=== PATIENT | male | born 1985 | race Caucasian/White ===

== ENCOUNTER 2021-01-17 20:03 | Inpatient (IN) | payer BC ==
[~2021-01-17] VITALS: Ht 187.9 cm; Wt 104.9 kg
[2021-01-17] MEDS ORDERED: ASPIRIN 81 MG CHEW (CHILDREN'S ASA) PO ONE (20:30)
[2021-01-17] MEDS ORDERED: ENOXAPARIN 100 MG/1 ML (LOVENOX) SYR SC ONE (20:30)
[2021-01-17] MEDS ORDERED: dilTIAZem DRIP PRE-MIX 125 ML IV SCH ×2 (20:30→23:00)
[2021-01-17 20:45] LABS: BASOPHILS % (AUTO) 0 % (0-10); EOSINOPHILS # (AUTO) 0.1 10^3/uL (0.0-0.3); EOSINOPHILS % (AUTO) 1 % (0-10); HEMATOCRIT 44 % (40-54); HEMOGLOBIN 14.7 g/dL (13.3-17.7); LYMPHOCYTES # (AUTO) 2.1 10^3/uL (1.0-4.0); LYMPHOCYTES % (AUTO) 22 % (12-44); MEAN CORPUSCULAR HEMOGLOBIN 29 pg (25-34); MEAN CORPUSCULAR HGB CONC 33 g/dL (32-36); MEAN CORPUSCULAR VOLUME 88 fL (80-99); MEAN PLATELET VOLUME 8.8 fL (9.0-12.2); MONOCYTES # (AUTO) 0.6 10^3/uL (0.0-1.0); MONOCYTES % (AUTO) 7 % (0-12); NEUTROPHILS # (AUTO) 6.6 10^3/uL (1.8-7.8); NEUTROPHILS % (AUTO) 70 % (42-75); PLATELET COUNT 346 10^3/uL (130-400); WHITE BLOOD COUNT 9.4 10^3/uL (4.3-11.0)
--- NOTE | 2021-01-17 20:54 | ED Cardiac General ---
History of Present Illness General Chief Complaint: Cardiac/General Problems Stated Complaint: IRREGULAR HEART RATE Source: patient History of Present Illness Date Seen by Provider: Jan 17, 2021 Time Seen by Provider: 20:15 Initial Comments PT ARRIVES VIA POV FROM WORK AT THE [employer] STATES HE WAS GOING TO THE BATHROOM, SITTING ON TOILET ( WORKS A STERILIZER MACHINE OPERATOR) AND NOTICED THAT HIS HEART WAS BEATING IRREGULAR STATES PULSE WAS AROUND 100 STATES HE DOES NOT FEEL IT OCCURRING RIGHT NOW NO SHORTNESS OF BREATH NO CHEST PAIN STATES HIS PALMS GOT SWEATY, BUT NO OTHER SWEATING NO DIZZINESS OR SYNCOPE NO NAUSEA/VOMITING STATES HE HAS SIMILAR SITUATION IN [place] AND WAS ADMITTED AT [facility] IN [place], AND HAD ATRIAL FIBRILLATION/FLUTTER STATES HE WAS NOT SENT HOME ON ANY MEDICATIONS--STATES THEY THOUGHT IT MIGHT BE DUE TO DEHYDRATION STATES HE FOLLOWED UP WITH DR. HERNANDEZ, PRINCIPAL LAW CLERK ON 11/20/20 AND NO RX'S GIVEN. HAS ANOTHER FOLLOW UP THE END OF JANUARY NO PRIOR PROBLEMS WITH HIS HEART ONLY MEDICATIONS ARE HYDROXYZINE AND SERTRALINE FOR ANXIETY STATES NO UNUSUAL STRESS OR ACTIVITY TODAY STATES HE WORKS OUT EVERY MORNING HAS BEEN EATING AND DRINKING NORMALLY STATES HE DID SMOKE 1 PPD, BUT QUIT 1 1/2 YEARS AGO, HAS BEEN USING NICOTINE POUCHES FOR THE LAST 2 WEEKS DRINKS A 6 PACK A COUPLE OF TIMES A WEEK, BUT DENIES ANY USE FOR A WEEK USED TO SMOKE MARIJUANA DAILY, NOW ONLY SMOKES IT EVERY COUPLE OF WEEKS, AND NONE THIS WEEK. HAS NOT RECEIVED COVID-19 VACCINE PCP: HAS SEEN A ELECTRIC WELL LOGGING OPERATOR AT [facility] IN [place] A COUPLE OF TIMES PRINCIPAL LAW CLERK: DR. HERNANDEZ AT [facility] Allergies and Home Medications Allergies Coded Allergies: No Known Drug Allergies (Unverified , 01/17/21) Patient Home Medication List Home Medication List Reviewed: Yes Review of Systems Review of Systems Constitutional: no symptoms reported EENTM: No Symptoms Reported Respiratory: No Symptoms Reported Cardiovascular: See HPI; Denies Chest Pain, Denies Lightheadedness; Palpitations; Denies Syncope Gastrointestinal: No Symptoms Reported Genitourinary: No Symptoms Reported Musculoskeletal: no symptoms reported Skin: no symptoms reported Psychiatric/Neurological: No Symptoms Reported Endocrine: No Symptoms Reported Hematologic/Lymphatic: No Symptoms Reported Past Xyeukty-Wkxaso-Irrwao Hx Patient Social History Tobacco Use?: Yes Tobacco type used: Cigarettes Smokeless Tobacco Frequency: Current Everyday User Substance use?: Yes Substance type: Marijuana Alcohol Use?: Yes Alcohol type: Beer Alcohol Frequency: Couple times a week Past Medical History Surgery/Hospitalization HX: RIGHT ORBITAL FRACTURE/RECONSTRUCTION-REPAIR Surgeries: Yes Respiratory: No Cardiac: Yes (AFIB/FLUTTER 09/2020-[place] AT [facility], CONVERTED, NO DAILY MEDS) Atrial Fibrillation Neurological: No Genitourinary: No Gastrointestinal: No Musculoskeletal: No Endocrine: No HEENT: Yes (RIGHT ORBITAL FX/REPAIR) Cancer: No Psychosocial: Yes Anxiety, Depression Integumentary: No Blood Disorders: No Physical Exam Vital Signs Vital Signs - First Documented 01/17/21 20:13 Temp 37.0 Pulse 106 Resp 18 B/P (MAP) 135/108 (117) O2 Delivery Room Air Capillary Refill : Height, Weight, BMI Height: '" Weight: lbs. oz. kg; BMI Method: General Appearance: No Apparent Distress, WD/WN Neck: Full Range of Motion, Normal Inspection, Non Tender, Supple Respiratory: Normal Breath Sounds, No Accessory Muscle Use Cardiovascular: No Edema, No JVD, No Murmur, Normal Peripheral Pulses, Irregularly Irregular, Tachycardia Gastrointestinal: Non Tender, Soft Extremity: Normal Inspection, No Calf Tenderness, No Pedal Edema Neurologic/Psychiatric: Alert, Oriented x3, No Motor/Sensory Deficits, Normal Mood/Affect, clearing distribution clerk II-XII Norm as Tested Skin: Normal Color, Warm/Dry; No Diaphoresis; Tattoos/Piercings (MULTIPLE TATTOOS) Progress/Results/Core Measures Results/Orders Lab Results Laboratory Tests Test 01/17/21 20:20 01/17/21 21:19 Range/Units White Blood Count 9.4 4.3-11.0 10^3/uL Red Blood Count 5.00 4.30-5.52 10^6/uL Hemoglobin 14.7 13.3-17.7 g/dL Hematocrit 44 40-54 % Mean Corpuscular Volume 88 80-99 fL Mean Corpuscular Hemoglobin 29 25-34 pg Mean Corpuscular Hemoglobin Concent 33 32-36 g/dL Red Cell Distribution Width 12.3 10.0-14.5 % Platelet Count 346 130-400 10^3/uL Mean Platelet Volume 8.8 L 9.0-12.2 fL Immature Granulocyte % (Auto) 0 % Neutrophils (%) (Auto) 70 42-75 % Lymphocytes (%) (Auto) 22 12-44 % Monocytes (%) (Auto) 7 0-12 % Eosinophils (%) (Auto) 1 0-10 % Basophils (%) (Auto) 0 0-10 % Neutrophils # (Auto) 6.6 1.8-7.8 10^3/uL Lymphocytes # (Auto) 2.1 1.0-4.0 10^3/uL Monocytes # (Auto) 0.6 0.0-1.0 10^3/uL Eosinophils # (Auto) 0.1 0.0-0.3 10^3/uL Basophils # (Auto) 0.0 0.0-0.1 10^3/uL Immature Granulocyte # (Auto) 0.0 0.0-0.1 10^3/uL Prothrombin Time 13.6 12.2-14.7 SEC INR Comment 1.0 0.8-1.4 Activated Partial Thromboplast Time 32 24-35 SEC Sodium Level 137 135-145 MMOL/L Potassium Level 3.9 3.6-5.0 MMOL/L Chloride Level 103 98-107 MMOL/L Carbon Dioxide Level 21 21-32 MMOL/L Anion Gap 13 5-14 MMOL/L Blood Urea Nitrogen 13 7-18 MG/DL Creatinine 1.05 0.60-1.30 MG/DL Estimat Glomerular Filtration Rate 80 BUN/Creatinine Ratio 12 Glucose Level 163 H 70-105 MG/DL Calcium Level 10.2 H 8.5-10.1 MG/DL Corrected Calcium 8.5-10.1 MG/DL Magnesium Level 2.1 1.6-2.4 MG/DL Total Bilirubin 0.4 0.1-1.0 MG/DL Aspartate Amino Transf (AST/SGOT) 226 H 5-34 U/L Alanine Aminotransferase (ALT/SGPT) 107 H 0-55 U/L Alkaline Phosphatase 64 40-136 U/L Total Creatine Kinase 26045 H 30-200 U/L Creatine Kinase MB 2.8 <6.6 NG/ML Myoglobin 709.7 H 10.0-92.0 NG/ML Troponin I < 0.028 <0.028 NG/ML B-Type Natriuretic Peptide < 10.0 <100.0 PG/ML Total Protein 7.9 6.4-8.2 GM/DL Albumin 4.8 H 3.2-4.5 GM/DL TSH [facility] Testing 1.13 0.35-4.94 UIU/ML Serum Alcohol < 10 <10 MG/DL Urine Color YELLOW Urine Clarity CLEAR Urine pH 6.0 5-9 Urine Specific [place] 1.015 L 1.016-1.022 Urine Protein NEGATIVE NEGATIVE Urine Glucose (UA) NEGATIVE NEGATIVE Urine Ketones NEGATIVE NEGATIVE Urine Nitrite NEGATIVE NEGATIVE Urine Bilirubin NEGATIVE NEGATIVE Urine Urobilinogen 0.2 < = 1.0 MG/DL Urine Leukocyte Esterase NEGATIVE NEGATIVE Urine RBC (Auto) TRACE-I NEGATIVE Urine RBC NONE /HPF Urine WBC NONE /HPF Urine Squamous Epithelial Cells RARE /HPF Urine Crystals NONE /LPF Urine Bacteria NEGATIVE /HPF Urine Casts NONE /LPF Urine Mucus NEGATIVE /LPF Urine Culture Indicated NO Urine Opiates Screen NEGATIVE NEGATIVE Urine Oxycodone Screen NEGATIVE NEGATIVE Urine Methadone Screen NEGATIVE NEGATIVE Urine Propoxyphene Screen NEGATIVE NEGATIVE Urine Barbiturates Screen NEGATIVE NEGATIVE Ur Tricyclic Antidepressants Screen NEGATIVE NEGATIVE Urine Phencyclidine Screen NEGATIVE NEGATIVE Urine Amphetamines Screen NEGATIVE NEGATIVE Urine Methamphetamines Screen NEGATIVE NEGATIVE Urine Benzodiazepines Screen NEGATIVE NEGATIVE Urine Cocaine Screen NEGATIVE NEGATIVE Urine Cannabinoids Screen NEGATIVE NEGATIVE My Orders Orders - MARTINA COMBS DO Ed Iv/Invasive Line Start (01/17/21 20:21) Ekg Tracing (01/17/21 20:21) Monitor-Rhythm Ecg Trace Only (01/17/21 20:21) Chest 1 View, Ap/Pa Only (01/17/21 20:21) Alcohol (01/17/21 20:21) BNP (01/17/21 20:21) Cbc With Automated Diff (01/17/21 20:21) Comprehensive Metabolic Panel (01/17/21 20:21) Creatine Kinase (01/17/21 20:21) Creatine Kinase Mb (01/17/21 20:21) Drug Screen Stat (Urine) (01/17/21 20:21) Magnesium (01/17/21 20:21) Protime With Inr (01/17/21 20:21) Partial Thromboplastin Time (01/17/21 20:21) Thyroid Analyzer (01/17/21 20:21) Ua Culture If Indicated (01/17/21 20:21) Myoglobin Serum (01/17/21 20:21) Troponin I (01/17/21 20:21) Aspirin Chewable Tablet (Baby Aspirin Ch (01/17/21 20:30) Enoxaparin Injection (Lovenox Injection) (01/17/21 20:30) Diltiazem Injection (Cardizem Injection) (01/17/21 20:30) Diltiazem Drip Pre-Mix (Cardizem Drip Pr (01/17/21 20:30) Ekg Tracing (01/17/21 20:44) Hepatitis Panel Acute (01/17/21 21:18) Medications Given in ED Current Medications Medications Dose Ordered Sig/Yessy Route Start Time Stop Time Status Last Admin Dose Admin Aspirin 324 mg ONCE ONCE PO 01/17/21 20:30 01/17/21 20:31 DC 01/17/21 20:27 324 MG Diltiazem HCl 20 mg ONCE ONCE IVP 01/17/21 20:30 01/17/21 20:31 DC 01/17/21 20:30 20 MG Enoxaparin Sodium 100 mg ONCE ONCE SC 01/17/21 20:30 01/17/21 20:31 DC 01/17/21 20:34 100 MG Vital Signs/I&O 01/17/21 01/17/21 20:13 20:13 Temp 37.0 Pulse 106 Resp 18 B/P (MAP) 135/108 (117) O2 Delivery Room Air Room Air Progress Progress Note : Progress Note GIVEN ASPIRIN AND LOVENOX GIVEN CARDIZEM AND BOLUS--RATE DOWN TO 80'S, BUT STILL IN ATRIAL FLUTTER PT WITH STABLE VITALS, NO HYPOTENSION NO DYSPNEA OR HYPOXIA PT WISHES TO BE A FULL CODE Initial ECG Impression Date: Jan 17, 2021 Initial ECG Impression Time: 20:14 Initial ECG Rate: 126 Initial ECG Rhythm: A Fib/Flutter (FLUTTER) EKG : EKG Time: 20:18 Rate: 87 Rhythm: A Fib/Flutter (FLUTTER) Diagnostic Imaging Comments CXR--PER RADIOLOGIST REPORT AT 2154 FINDINGS: The lungs are clear. No failure, effusion or pneumothorax. IMPRESSION: No acute appearing abnormality. Reviewed: Reviewed by Me Departure Communication (Admissions) 2119--SPOKE WITH DR. GOODWIN, PRINCIPAL LAW CLERK, ADVISES TO START ON ELIQUIS, ECHOCARDIOGRAM IN AM AND ADMIT TO MEDICINE 2125--SPOKE WITH DR. CRAWFORD, HOSPITALIST, ACCEPTS PT FOR ADMIT. NO ADDITIONAL RECOMMENDATIONS 2130--REPORT TO E-ICU PHYSICIAN. NO ADDITIONAL RECOMMENDATIONS Impression Primary Impression: ATRIAL FLUTTER WITH RVR Additional Impression: Elevated liver enzymes Disposition: ADMITTED INPATIENT Condition: Stable Admissions Decision to Admit Reason: Admit from ER (General) Decision to Admit/Date: Jan 17, 2021 Time/Decision to Admit Time: 21:20 Departure-Patient Inst. Referrals: NO,LOCAL PHYSICIAN (PCP/Family) Primary Care Physician MARTINA COMBS DO Jan 17, 2021 20:54
[2021-01-17 20:59] LABS: ALBUMIN 4.8 GM/DL (3.2-4.5); CHLORIDE 103 MMOL/L (98-107); POTASSIUM 3.9 MMOL/L (3.6-5.0); SODIUM 137 MMOL/L (135-145)
[2021-01-17 21:00] LABS: CALCIUM 10.2 MG/DL (8.5-10.1)
[2021-01-17 21:01] LABS: GLUCOSE 163 MG/DL (70-105); TOTAL PROTEIN 7.9 GM/DL (6.4-8.2)
[2021-01-17 21:02] LABS: CARBON DIOXIDE 21 MMOL/L (21-32)
[2021-01-17 21:03] LABS: BILIRUBIN,TOTAL 0.4 MG/DL (0.1-1.0)
[2021-01-17 21:04] LABS: ALKALINE PHOSPHATASE 64 U/L (40-136)
[2021-01-17 21:05] LABS: CREATININE SERUM 1.05 MG/DL (0.60-1.30); GFR ESTIMATED 80
[2021-01-17 21:06] LABS: BUN/CREATININE RATIO 12
[2021-01-17 21:08] LABS: ALANINE AMINOTRANSFERASE 107 U/L (0-55); MAGNESIUM 2.1 MG/DL (1.6-2.4)
[2021-01-17 21:16] LABS: CREATINE KINASE MB 2.8 NG/ML (<6.6)
[2021-01-17 21:24] LABS: BILIRUBIN,URINE NEGATIVE (NEGATIVE); CLARITY,URINE CLEAR; COLOR,URINE YELLOW; GLUCOSE, URINE (UA) NEGATIVE (NEGATIVE); KETONES,URINE NEGATIVE (NEGATIVE); LEUKOCYTE ESTERASE ,URINE NEGATIVE (NEGATIVE); NITRITE,URINE NEGATIVE (NEGATIVE); PROTEIN,URINE NEGATIVE (NEGATIVE)
[2021-01-17 21:28] LABS: TSH (THYROID ANALYZER) 1.13 UIU/ML (0.35-4.94)
[2021-01-17 21:33] LABS: BACTERIA,URINE NEGATIVE /HPF; SQUAMOUS EPITHELIAL CELL,UR RARE /HPF
[2021-01-17 21:35] LABS: AMPHETAMINE SCREEN, URINE NEGATIVE (NEGATIVE); BARBITURATE SCREEN URINE NEGATIVE (NEGATIVE); BENZODIAZEPINES SCREEN URINE NEGATIVE (NEGATIVE); CANNABINOID SCREEN, URINE NEGATIVE (NEGATIVE); COCAINE SCREEN URINE NEGATIVE (NEGATIVE); METHADONE STAT NEGATIVE (NEGATIVE); METHAMPHETAMINE SCREEN URINE S NEGATIVE (NEGATIVE); OPIATE SCREEN URINE NEGATIVE (NEGATIVE); OXYCODONE STAT NEGATIVE (NEGATIVE); PROPOXYPHENE STAT NEGATIVE (NEGATIVE); TRICYCLIC ANTIDEPRESSANTS SCRE NEGATIVE (NEGATIVE)
[2021-01-17 21:37] LABS: PROTHROMBIN TIME PATIENT 13.6 SEC (12.2-14.7)
--- NOTE | 2021-01-17 21:44 | Diagnostic Imaging Report ---
INDICATION: Arrhythmia. FINDINGS: The lungs are clear. No failure, effusion or pneumothorax. IMPRESSION: No acute appearing abnormality. Dictated by: Dictated on workstation # [id number]
[2021-01-17 21:50] LABS: CREATINE KINASE 11693 U/L (30-200)
--- NOTE | 2021-01-17 21:51 | Tele-ICU Consult ---
History of Present Illness History of Present Illness Date Seen by Provider: Jan 17, 2021 Time Seen by Provider: 21:25 Date of Admission This virtual visit was conducted using real time audio/video. Thank you for asking us to see this patient for respiratory insufficiency and distress. HPC: Recent events: admitted through w AFlutter/RVR c/o palpitations. Tox screen negative. PMH: Aflutter 09/2020. SH: smoking history Y. Works at [employer]. FH: Non-contributory ROS: as in HPI PE: VSS HR 105 BP 120s/80s HEENT: No obvious masses, adenopathy or JVD. Chest: clear to auscultation. CV: Irreg. S1 S2 No murmur or added sounds. Abd: Non-tender. Bowel sounds Y. : Unremarkable. Mae N. AGRICULTURAL RESEARCH DIRECTOR/psychiatric: Alert and oriented, grossly intact. No obvious focal findings. Extremities: No edema. Capillary refill < 3 seconds. Skin: unremarkable. Results: Elevated AST, ALT Calcium 10.2. Normal BNP and Troponin. CXR: No infiltrates. A/P: Recurrent AFlutter/RVR Available chart/ vitals / labs /images reviewed. Video assessment done using teleICU camera, rest of exam as per RN. Critical Care: Continue Cardizem infusion, Eliquis, ASA. Received Lovenox in ER. Discussed with ANDREEA Ramos and Dr. Amaury BEAVER MD. Asked RN to reach out to eICU if any questions or concerns later. Time spent with patient/coordination of care with other health professionals (mins): 25 Allergies and Home Medications Allergies Coded Allergies: No Known Drug Allergies (Unverified , 01/17/21) Past Medical/Social/Family Hx Patient Social History Tobacco Use?: Yes Tobacco type used: Cigarettes Smokeless type used: Pouch Smokeless Tobacco Frequency: Current Everyday User Substance use?: Yes Substance type: Marijuana Alcohol Use?: Yes Alcohol type: Beer Alcohol Frequency: Couple times a week Current Status Communicates: Verbally Primary Language: Argentine Preferred Spoken Language: Argentine Is interpretation needed?: No Review of Systems Constitutional: see HPI EENTM: see HPI Respiratory: see HPI Cardiovascular: see HPI Gastrointestinal: see HPI Musculoskeletal: see HPI Skin: see HPI Psychiatric/Neurological: See HPI All Other Systems Reviewed Negative Unless Noted: Yes Sepsis Event Evaluation Height, Weight, BMI Height: '" Weight: lbs. oz. kg; 29.00 BMI Method: Exam Exam Patient acknowledged, consented, and participated in this virtual visit which was conducted using real time audio/video Vital Signs Date Time Temp Pulse Resp B/P (MAP) Pulse Ox O2 Delivery O2 Flow Rate FiO2 01/17/21 20:13 37.0 106 18 135/108 (117) Room Air 01/17/21 20:13 Room Air Height & Weight Height: '" Weight: lbs. oz. kg; 29.00 BMI Method: General Appearance: No Apparent Distress, WD/WN Neck: Full Range of Motion, Normal Inspection, Non Tender, Supple Respiratory: Normal Breath Sounds, No Accessory Muscle Use Cardiovascular: No Edema, No JVD, No Murmur, Normal Peripheral Pulses, Irregularly Irregular, Tachycardia Capillary Refill: Less Than 3 Seconds Peripheral Pulses: 1+ Dorsalis Pedis (R), 1+ Left Dors-Pedis (L) Extremity: Normal Inspection, No Calf Tenderness, No Pedal Edema Neurologic/Psychiatric: Alert, Oriented x3, No Motor/Sensory Deficits, Normal Mood/Affect, solutions analyst II-XII Norm as Tested Skin: Normal Color, Warm/Dry; No Diaphoresis; Tattoos/Piercings (MULTIPLE TATTOOS) Results Lab Laboratory Tests 01/17/21 20:20 Assessment/Plan Assessment/Plan See free text. Critical Care: Critically Ill Patient PRAVEEN GARCIA MD Jan 17, 2021 21:51
[2021-01-17 22:17] VITALS: BP 121/87
[2021-01-17] MEDS ORDERED: CATHETER FLUSH 10 ML SYR IV PRN (22:45)
[2021-01-17] MEDS: APIXABAN 5 MG (ELIQUIS) TABLET PO SCH (23:49)
[2021-01-18 03:18] LABS: BASOPHILS % (AUTO) 0 % (0-10); EOSINOPHILS # (AUTO) 0.1 10^3/uL (0.0-0.3); EOSINOPHILS % (AUTO) 2 % (0-10); HEMATOCRIT 42 % (40-54); HEMOGLOBIN 13.9 g/dL (13.3-17.7); LYMPHOCYTES # (AUTO) 3.6 10^3/uL (1.0-4.0); LYMPHOCYTES % (AUTO) 43 % (12-44); MEAN CORPUSCULAR HEMOGLOBIN 30 pg (25-34); MEAN CORPUSCULAR HGB CONC 33 g/dL (32-36); MEAN CORPUSCULAR VOLUME 90 fL (80-99); MONOCYTES # (AUTO) 0.6 10^3/uL (0.0-1.0); MONOCYTES % (AUTO) 7 % (0-12); NEUTROPHILS # (AUTO) 4.1 10^3/uL (1.8-7.8); NEUTROPHILS % (AUTO) 48 % (42-75); PLATELET COUNT 304 10^3/uL (130-400); WHITE BLOOD COUNT 8.5 10^3/uL (4.3-11.0)
[2021-01-18 03:28] LABS: ALBUMIN 4.2 GM/DL (3.2-4.5); POTASSIUM 3.8 MMOL/L (3.6-5.0)
[2021-01-18 03:29] LABS: CALCIUM 9.7 MG/DL (8.5-10.1)
[2021-01-18 03:30] LABS: TOTAL PROTEIN 6.9 GM/DL (6.4-8.2)
[2021-01-18 03:32] LABS: BILIRUBIN,TOTAL 0.4 MG/DL (0.1-1.0)
[2021-01-18 03:33] LABS: PHOSPHORUS 4.8 MG/DL (2.3-4.7)
[2021-01-18 03:34] LABS: CREATININE SERUM 1.06 MG/DL (0.60-1.30)
[2021-01-18 03:37] LABS: MAGNESIUM 2.1 MG/DL (1.6-2.4)
[2021-01-18] MEDS ORDERED: CATHETER FLUSH 10 ML SYR IV SCH (06:00)
[2021-01-18] MEDS ORDERED: NS IV 1000 ML 1,000 ML IV SCH (08:45)
[2021-01-18] MEDS ORDERED: ASPIRIN E.C. 81 MG (ECOTRIN) TAB PO SCH (09:00)
[2021-01-18] MEDS: APIXABAN 5 MG (ELIQUIS) TABLET PO SCH (09:11)
--- NOTE | 2021-01-18 10:17 | Tele-ICU Progress Note ---
Subjective Date Seen by a Provider: Jan 18, 2021 Time Seen by a Provider: 10:14 Subjective/Events-last exam Patient currently resting comfortably. Atrial fibrillation is converted to sinus rhythm currently his heart rate is about 55/min. He is off the Cardizem drip. Blood pressure is stable. No acute respiratory distress present. Offers no complaints. Video visit made. Discussed with COLLET DRILLER. Review of Systems ROS PER ATTENDING Sepsis Event Evaluation Height, Weight, BMI Height: '" Weight: lbs. oz. kg; 29.71 BMI Method: Exam Exam Patient acknowledged, consented, and participated in this virtual visit which was conducted using real time audio/video Vital Signs Date Time Temp Pulse Resp B/P (MAP) Pulse Ox O2 Delivery O2 Flow Rate FiO2 01/18/21 09:00 53 17 123/75 96 Room Air 01/18/21 08:00 56 15 113/84 96 Room Air 01/18/21 07:52 Room Air 01/18/21 07:30 36.2 01/18/21 07:00 54 01/18/21 07:00 54 18 105/65 95 Room Air 01/18/21 06:00 57 17 109/68 95 Room Air 01/18/21 05:00 54 19 110/68 96 Room Air 01/18/21 04:00 57 20 114/77 95 Room Air 01/18/21 04:00 95 Room Air 01/18/21 03:00 54 19 109/68 97 Room Air 01/18/21 02:00 55 19 118/68 95 Room Air 01/18/21 01:00 53 01/18/21 00:15 64 18 113/71 97 Room Air 01/17/21 23:59 96 Room Air 01/17/21 23:45 66 11 112/69 96 Room Air 01/17/21 23:15 82 22 122/83 96 Room Air 01/17/21 23:00 84 14 118/85 97 Room Air 01/17/21 22:45 96 Room Air 01/17/21 22:45 64 13 120/79 97 Room Air 01/17/21 22:43 71 01/17/21 22:37 36.4 65 18 122/83 96 Room Air 01/17/21 22:17 37.0 74 16 121/87 96 Room Air 01/17/21 20:13 37.0 106 18 135/108 (117) Room Air 01/17/21 20:13 Room Air I & O 01/18/21 07:00 Intake Total 750 ml Balance 750 ml Height & Weight Height: '" Weight: lbs. oz. kg; 29.71 BMI Method: General Appearance: No Apparent Distress, WD/WN Neck: Full Range of Motion, Normal Inspection, Non Tender, Supple Respiratory: Normal Breath Sounds, No Accessory Muscle Use Cardiovascular: No Edema, No JVD, No Murmur, Normal Peripheral Pulses, Irregularly Irregular, Tachycardia Capillary Refill: Less Than 3 Seconds Peripheral Pulses: 1+ Dorsalis Pedis (R), 1+ Left Dors-Pedis (L) Extremity: Normal Inspection, No Calf Tenderness, No Pedal Edema Neurologic/Psychiatric: Alert, Oriented x3, No Motor/Sensory Deficits, Normal Mood/Affect, multi craft maintenance technician II-XII Norm as Tested Skin: Normal Color, Warm/Dry; No Diaphoresis; Tattoos/Piercings (MULTIPLE TATTOOS) Results Lab Laboratory Tests 01/17/21 20:20 01/18/21 03:06 Meds REVIEWED Assessment/Plan Assessment/Plan 1. Atrial fibrillation with rapid ventricular rate now converted to sinus rhythm. Recommendations 1. As patient is already converted to sinus rhythm further management with possible antiarrhythmic agents as an outpatient per cardiology. 2. Due to paroxysmal atrial fibrillation he would benefit from oral anticoagulation to prevent stroke based on his CHADS-2 score. Critical Care: Critically Ill Patient Time spent with patient (mins): 25 DARION DELANEY MD Jan 18, 2021 10:17
--- NOTE | 2021-01-18 10:54 | Consultation-Cardiology ---
HPI-Cardiology Cardiology Consultation: Date of Consultation 01/18/21 Time Seen by a Provider: 10:15 Date of Admission Attending Physician Juliann Milian MD Admitting Physician No,Local Physician Consulting Physician ASMITA GOODWIN MD, MA, FACP, FACC, FSCAI, CCDS Physician requesting consult: Dr Milian Primary gas combustion engineer: Dr Mariee ([place], [place]) HPI: Chief Complaint: CC: Palpitations HPI 36 yo man admitted through the ER last night with sudden onset of palpitations: a feeling of rapid heart beat that was making him feel generally unwell. No cp or palp or syncope or swelling. Has taken up vigorous physical exercise lately. States is prone to drinking up to 8 beers in a day, fairly frequently, none for a week. No n/v/d Review of Systems-Cardiology Review of Systems Constitutional: No weight loss, No weight gain Eyes: No vision change Ears/Nose/Throat: No ear discharge, No nasal drainage, No recent hearing loss Respiratory: As described under HPI Cardiovascular: As described under HPI Gastrointestinal: As described under HPI Genitourinary: No dysuria, No hematuria, No urine frequency changes Musculoskeletal: No back pain, No joint pain Skin: No rash, No ulcerations Psychiatric/Neurological: No seizure, No focal weakness, No syncope Hematologic: No bleeding abnormalities All Other Systems Reviewed Negative Unless Noted: Yes JFA-Fedrig-Mjtexo Hx Patient Social History Smoking Status: Former Smoker Have you traveled recently?: No Alcohol Use?: Yes Substance type: Marijuana Tobacco type used: Cigarettes Past Medical History PMH As described under Assessment. Family Medical History Family Medical History: He doesn't report fam h/o early CAD or SCD Allergies and Home Medications Allergies Coded Allergies: No Known Drug Allergies (Unverified , 01/17/21) Patient Home Medication List Home Medication List Reviewed: Yes Physical Exam-Cardiology Physical Exam Vital Signs/I&O 01/17/21 01/17/21 01/17/21 01/17/21 23:00 23:15 23:45 23:59 Pulse 84 82 66 Resp 14 22 11 B/P (MAP) 118/85 122/83 112/69 Pulse Ox 97 96 96 96 O2 Delivery Room Air Room Air Room Air Room Air 01/18/21 01/18/21 01/18/21 01/18/21 00:15 01:00 02:00 03:00 Pulse 64 53 55 54 Resp 18 19 19 B/P (MAP) 113/71 118/68 109/68 Pulse Ox 97 95 97 O2 Delivery Room Air Room Air Room Air 01/18/21 01/18/21 01/18/21 01/18/21 04:00 04:00 05:00 06:00 Pulse 57 54 57 Resp 20 19 17 B/P (MAP) 114/77 110/68 109/68 Pulse Ox 95 95 96 95 O2 Delivery Room Air Room Air Room Air Room Air 01/18/21 01/18/21 01/18/21 01/18/21 07:00 07:00 07:30 07:52 Temp 36.2 Pulse 54 54 Resp 18 B/P (MAP) 105/65 Pulse Ox 95 O2 Delivery Room Air Room Air 01/18/21 01/18/21 01/18/21 08:00 09:00 10:00 Pulse 56 53 49 Resp 15 17 14 B/P (MAP) 113/84 123/75 119/70 Pulse Ox 96 96 97 O2 Delivery Room Air Room Air Room Air Capillary Refill : Less Than 3 Seconds Constitutional: AAO x 3, well-developed, well-nourished HEENT: hearing is well preserved, oral hygience is good Neck: carotid pulses are 2 + bilaterally, with good upstrokes Respiratory: No accessory muscle use; other (good, bilat air entry) Cardiovascular: regular rate-rhythm, S1 and S2, systolic murmur (faint DEON at card base) Gastrointestinal: No tender; soft; No guarding, No rebound; audible bowel sounds Extremities: No clubbing, No cyanosis, No significant edema Neurologic/Psychiatric: oriented x 3, other (moves all limbs equally) Skin: No rash on exposed areas, No ulcerations on exposed areas Data Review Labs Laboratory Tests 01/17/21 20:20: White Blood Count 9.4, Red Blood Count 5.00, Hemoglobin 14.7, Hematocrit 44, Mean Corpuscular Volume 88, Mean Corpuscular Hemoglobin 29, Mean Corpuscular Hemoglobin Concent 33, Red Cell Distribution Width 12.3, Platelet Count 346, Mean Platelet Volume 8.8L, Immature Granulocyte % (Auto) 0, Neutrophils (%) (Auto) 70, Lymphocytes (%) (Auto) 22, Monocytes (%) (Auto) 7, Eosinophils (%) (Auto) 1, Basophils (%) (Auto) 0, Neutrophils # (Auto) 6.6, Lymphocytes # (Auto) 2.1, Monocytes # (Auto) 0.6, Eosinophils # (Auto) 0.1, Basophils # (Auto) 0.0, Immature Granulocyte # (Auto) 0.0, Prothrombin Time 13.6, INR Comment 1.0, Activated Partial Thromboplast Time 32, Sodium Level 137, Potassium Level 3.9, Chloride Level 103, Carbon Dioxide Level 21, Anion Gap 13, Blood Urea Nitrogen 13, Creatinine 1.05, Estimat Glomerular Filtration Rate 80, BUN/Creatinine Ratio 12, Glucose Level 163H, Calcium Level 10.2H, Corrected Calcium , Magnesium Level 2.1, Total Bilirubin 0.4, Aspartate Amino Transf (AST/SGOT) 226H, Alanine Aminotransferase (ALT/SGPT) 107H, Alkaline Phosphatase 64, Total Creatine Kinase 25050B, Creatine Kinase MB 2.8, Myoglobin 709.7H, Troponin I < 0.028, B-Type Natriuretic Peptide < 10.0, Total Protein 7.9, Albumin 4.8H, TSH [place] Testing 1.13, Serum Alcohol < 10 01/17/21 21:19: Urine Color YELLOW, Urine Clarity CLEAR, Urine pH 6.0, Urine Specific [place] 1.015L, Urine Protein NEGATIVE, Urine Glucose (UA) NEGATIVE, Urine Ketones NEGATIVE, Urine Nitrite NEGATIVE, Urine Bilirubin NEGATIVE, Urine Urobilinogen 0.2, Urine Leukocyte Esterase NEGATIVE, Urine RBC (Auto) TRACE-I, Urine RBC NONE, Urine WBC NONE, Urine Squamous Epithelial Cells RARE, Urine Crystals NONE, Urine Bacteria NEGATIVE, Urine Casts NONE, Urine Mucus NEGATIVE, Urine Culture Indicated NO, Urine Opiates Screen NEGATIVE, Urine Oxycodone Screen NEGATIVE, Urine Methadone Screen NEGATIVE, Urine Propoxyphene Screen NEGATIVE, Urine Barbiturates Screen NEGATIVE, Ur Tricyclic Antidepressants Screen NEGATIVE, Urine Phencyclidine Screen NEGATIVE, Urine Amphetamines Screen NEGATIVE, Urine Methamphetamines Screen NEGATIVE, Urine Benzodiazepines Screen NEGATIVE, Urine Cocaine Screen NEGATIVE, Urine Cannabinoids Screen NEGATIVE 01/18/21 03:06: White Blood Count 8.5, Red Blood Count 4.68, Hemoglobin 13.9, Hematocrit 42, Mean Corpuscular Volume 90, Mean Corpuscular Hemoglobin 30, Mean Corpuscular Hemoglobin Concent 33, Red Cell Distribution Width 12.5, Platelet Count 304, Mean Platelet Volume 9.0, Immature Granulocyte % (Auto) 0, Neutrophils (%) (Au to) 48, Lymphocytes (%) (Auto) 43, Monocytes (%) (Auto) 7, Eosinophils (%) (Auto) 2, Basophils (%) (Auto) 0, Neutrophils # (Auto) 4.1, Lymphocytes # (Auto) 3.6, Monocytes # (Auto) 0.6, Eosinophils # (Auto) 0.1, Basophils # (Auto) 0.0, Immature Granulocyte # (Auto) 0.0, Sodium Level 140, Potassium Level 3.8, Chloride Level 104, Carbon Dioxide Level 24, Anion Gap 12, Blood Urea Nitrogen 13, Creatinine 1.06, Estimat Glomerular Filtration Rate 79, BUN/Creatinine Ratio 12, Glucose Level 104, Calcium Level 9.7, Corrected Calcium 9.5, Magnesium Level 2.1, Total Bilirubin 0.4, Aspartate Amino Transf (AST/SGOT) 164H, Alanine Aminotransferase (ALT/SGPT) 92H, Alkaline Phosphatase 52, Total Creatine Kinase 7705#H, Troponin I < 0.028, Total Protein 6.9, Albumin 4.2, Phosphorus Level 4.8H Laboratory Tests 01/17/21 20:20 01/18/21 03:06 A/P-Cardiology Assessment/Admission Diagnosis Typical Atrial Flutter - first episode stated to be in September 2020 (patient states that an echo at [facility] in September 2020 was normal and there was no evidence of a heart attack during the admission) - second episode on 01/17/21 - currently in NSR Heavy alcohol use - advised to quit Elevated CK (normal serial troponin levels) - likely related to recently initiated vigorous exercise, being managed by the Hospitalist service Elevated transaminases - hepatitis, possibly alcohol-related, being managed by the Hospitalist service Discussion and Recomendations * Cardizem CD 180 mg daily for vent rate control during A Flutter * ASA 81 mg daily for stroke prophylaxis (CHADS score 0) * F/u with Dr Mariee, his regular gas combustion engineer, within 1-2 weeks * No alcohol * I discussed his CV issues with him and answered questions in detail Clinical Quality Measures AMI/AHF: ASA po Prior to arrival: ASMITA Valdez MD [facility] CCDS Jan 18, 2021 10:54
[2021-01-18] MEDS ORDERED: ASPI-999 PO (12:09)
[2021-01-18] MEDS ORDERED: DILT180C67 PO (12:09)
--- NOTE | 2021-01-18 12:15 | Discharge Summary ---
Discharge Summary Hospital Course Was the Problem List Reviewed?: Yes Problems/Dx: (1) Atrial flutter with rapid ventricular response Status: Acute (2) Rhabdomyolysis Status: Acute Qualifiers: Qualified Codes: M62.82 - Rhabdomyolysis (3) Alcohol use Status: Acute Hospital Course Date of Admission: Jan 17, 2021 at 21:20 Admission Diagnosis : Atrial flutter with rapid ventricular response Family Physician/Provider: No,Local Physician Date of Discharge: 01/18/21 Discharge Diagnosis: Atrial flutter with rapid ventricular response Hospital Course: Nicholas Lamar is a 36-year-old was admitted with atrial flutter with rapid ventricular response. He was started on IV diltiazem and he converted to normal sinus rhythm. He has a history of atrial flutter and follows with a agronomy research manager. He is not taking any medications. He was started on oral dil tiazem and a baby aspirin. He should follow-up with his agronomy research manager. His course was complicated by rhabdomyolysis and he was given IV fluids. His CK improved. He was encouraged to stay well-hydrated and avoid vigorous exercise for a couple days. He was recommended to discontinue alcohol use. He should follow-up with his primary care physician. He was discharged home in stable condition. Labs and Pending Lab Test: Laboratory Tests 01/17/21 20:20: White Blood Count 9.4, Red Blood Count 5.00, Hemoglobin 14.7, Hematocrit 44, Mean Corpuscular Volume 88, Mean Corpuscular Hemoglobin 29, Mean Corpuscular Hemoglobin Concent 33, Red Cell Distribution Width 12.3, Platelet Count 346, Mean Platelet Volume 8.8L, Immature Granulocyte % (Auto) 0, Neutrophils (%) (Auto) 70, Lymphocytes (%) (Auto) 22, Monocytes (%) (Auto) 7, Eosinophils (%) (Auto) 1, Basophils (%) (Auto) 0, Neutrophils # (Auto) 6.6, Lymphocytes # (Auto) 2.1, Monocytes # (Auto) 0.6, Eosinophils # (Auto) 0.1, Basophils # (Auto) 0.0, Immature Granulocyte # (Auto) 0.0, Prothrombin Time 13.6, INR Comment 1.0, Activated Partial Thromboplast Time 32, Sodium Level 137, Potassium Level 3.9, Chloride Level 103, Carbon Dioxide Level 21, Anion Gap 13, Blood Urea Nitrogen 13, Creatinine 1.05, Estimat Glomerular Filtration Rate 80, BUN/Creatinine Ratio 12, Glucose Level 163H, Calcium Level 10.2H, Corrected Calcium , Magnesium Level 2.1, Total Bilirubin 0.4, Aspartate Amino Transf (AST/SGOT) 226H, Alanine Aminotransferase (ALT/SGPT) 107H, Alkaline Phosphatase 64, Total Creatine Kinase 56709X, Creatine Kinase MB 2.8, Myoglobin 709.7H, Troponin I < 0.028, B-Type Natriuretic Peptide < 10.0, Total Protein 7.9, Albumin 4.8H, TSH [place] Testing 1.13, Serum Alcohol < 10, Hepatitis A IgM Antibody [Pending], Hepatitis B Surface Antigen [Pending], Hepatitis B Core IgM Antibody [Pending], Hepatitis C Antibody [Pending] 01/17/21 21:19: Urine Color YELLOW, Urine Clarity CLEAR, Urine pH 6.0, Urine Specific [place] 1.015L, Urine Protein NEGATIVE, Urine Glucose (UA) NEGATIVE, Urine Ketones NEG ATIVE, Urine Nitrite NEGATIVE, Urine Bilirubin NEGATIVE, Urine Urobilinogen 0.2, Urine Leukocyte Esterase NEGATIVE, Urine RBC (Auto) TRACE-I, Urine RBC NONE, Urine WBC NONE, Urine Squamous Epithelial Cells RARE, Urine Crystals NONE, Urine Bacteria NEGATIVE, Urine Casts NONE, Urine Mucus NEGATIVE, Urine Culture Indicated NO, Urine Opiates Screen NEGATIVE, Urine Oxycodone Screen NEGATIVE, Urine Methadone Screen NEGATIVE, Urine Propoxyphene Screen NEGATIVE, Urine Barbiturates Screen NEGATIVE, Ur Tricyclic Antidepressants Screen NEGATIVE, Urine Phencyclidine Screen NEGATIVE, Urine Amphetamines Screen NEGATIVE, Urine Methamphetamines Screen NEGATIVE, Urine Benzodiazepines Screen NEGATIVE, Urine Cocaine Screen NEGATIVE, Urine Cannabinoids Screen NEGATIVE 01/18/21 03:06: White Blood Count 8.5, Red Blood Count 4.68, Hemoglobin 13.9, Hematocrit 42, Mean Corpuscular Volume 90, Mean Corpuscular Hemoglobin 30, Mean Corpuscular Hemoglobin Concent 33, Red Cell Distribution Width 12.5, Platelet Count 304, Mean Platelet Volume 9.0, Immature Granulocyte % (Auto) 0, Neutrophils (%) (Auto) 48, Lymphocytes (%) (Auto) 43, Monocytes (%) (Auto) 7, Eosinophils (%) (Auto) 2, Basophils (%) (Auto) 0, Neutrophils # (Auto) 4.1, Lymphocytes # (Auto) 3.6, Monocytes # (Auto) 0.6, Eosinophils # (Auto) 0.1, Basophils # (Auto) 0.0, Immature Granulocyte # (Auto) 0.0, Sodium Level 140, Potassium Level 3.8, Chloride Level 104, Carbon Dioxide Level 24, Anion Gap 12, Blood Urea Nitrogen 13, Creatinine 1.06, Estimat Glomerular Filtration Rate 79, BUN/Creatinine Ratio 12, Glucose Level 104, Calcium Level 9.7, Corrected Calcium 9.5, Magnesium Level 2.1, Total Bilirubin 0.4, Aspartate Amino Transf (AST/SGOT) 164H, Alanine Aminotransferase (ALT/SGPT) 92H, Alkaline Phosphatase 52, Total Creatine Kinase 7705#H, Troponin I < 0.028, Total Protein 6.9, Albumin 4.2, Phosphorus Level 4.8H Home Meds Active Aspirin 81 Mg Tab.chew 81 Mg PO DAILY 30 Days Cardizem Cd (Diltiazem HCl) 180 Mg Cap.er.24h 180 Mg PO DAILY 30 Days Assessment/Pt Instructions Take medications as prescribed. Follow-up with your primary care physician and agronomy research manager. Return with worsening palpitations, shortness of breath, chest pain, or if you feel like you are getting worse. Discharge Planning: <30 minutes discharge planning Discharge Instructions Discharge Diet: Low Sodium Diet Activity as Tolerated: Yes Consultations Cardiology Discharge Physical Examination Vital Signs Vital Signs Date Time Temp Pulse Resp B/P (MAP) Pulse Ox O2 Delivery O2 Flow Rate FiO2 01/18/21 12:03 Room Air 01/18/21 12:00 58 11 130/92 98 01/18/21 11:35 36.0 General Appearance: No Apparent Distress, WD/WN HEENT: PERRL/EOMI, Pharynx Normal Respiratory: Lungs Clear, Normal Breath Sounds, No Respiratory Distress Cardiovascular: Regular Rate, Rhythm, No Edema, No Murmur Gastrointestinal: Normal Bowel Sounds, Non Tender, Soft Extremity: Normal Inspection, Non Tender, No Pedal Edema Skin: Normal Color, Warm/Dry Neurologic/Psychiatric: Alert, Oriented x3, No Motor/Sensory Deficits, Normal Mood/Affect Allergies: Coded Allergies: No Known Drug Allergies (Unverified , 01/17/21) Discharge Summary Date of Admission Jan 17, 2021 at 21:20 Date of Discharge Discharge Date: Jan 18, 2021 Discharge Time: 12:14 Admission Diagnosis Atrial flutter with rapid ventricular response Consults/Procedures Consulations Cardiology Discharge Diagnosis (1) Atrial flutter with rapid ventricular response Status: Acute (2) Rhabdomyolysis Status: Acute Qualifiers: Qualified Codes: M62.82 - Rhabdomyolysis (3) Alcohol use Status: Acute Clinical Quality Measures AMI/AHF: ASA po Prior to arrival: ANDRY Benito MD Jan 18, 2021 12:15
[2021-01-19] MEDS ORDERED: ASPIRIN 81 MG CHEW (CHILDREN'S ASA) PO SCH (09:00)
[2021-01-21 22:55] LABS: HEPATITIS C ANTIBODY C Non-Reactive (Non-Reactive)
== END 2021-01-18 12:30 | disposition home or self-care (01) | DRG 309 ==
LOC: EDUNIT# 20:03 → ER 20:06 → ICU 21:20
PROVIDERS: ADMIT Internal Medicine; ATTEND Internal Medicine
DX: I48.3 Typical atrial flutter (principal); M62.82 Rhabdomyolysis; K75.9 Inflammatory liver disease, unspecified; I48.0 Paroxysmal atrial fibrillation; F41.9 Anxiety disorder, unspecified; F32.A Depression, unspecified; Z79.899 Other long term (current) drug therapy; Z87.891 Personal history of nicotine dependence; Z72.89 Other problems related to lifestyle
CPT/HCPCS: 36415; 71045; 80053; 80074; 80306; 80320; 81000; 82550; 82553; 83735; 83874; 83880; 84100; 84443; 84484; 85025; 85610; 85730; 93005; 93041

== ENCOUNTER → 2021-05-07 | Outpatient (CLI) | payer BC ==
[~2021-05-07] MED LIST: ASPI-999 PO; DILT180C67 PO
== END ==
LOC: LABNPT 08:46
PROVIDERS: ATTEND Internal Medicine
DX: U07.1 COVID-19 (principal)
CPT/HCPCS: 87635; 87804